=== PATIENT | female | born 2000 | race Caucasian/White ===

== ENCOUNTER 2018-03-09 23:20 | Emergency (ER) | payer OTHER ==
[~2018-03-09] VITALS: Ht 177.8 cm; Wt 72.6 kg
[2018-03-10 00:19] LABS: BASOPHILS % (AUTO) 0 % (0-10); EOSINOPHILS # (AUTO) 0.1 10^3/uL (0.0-0.3); EOSINOPHILS % (AUTO) 1 % (0-10); HEMATOCRIT 41 % (35-52); HEMOGLOBIN 14.2 G/DL (11.5-16.0); LYMPHOCYTES # (AUTO) 2.2 X 10^3 (1.0-4.0); LYMPHOCYTES % (AUTO) 23 % (12-44); MEAN CORPUSCULAR HEMOGLOBIN 32 PG (25-34); MEAN CORPUSCULAR HGB CONC 35 G/DL (32-36); MEAN CORPUSCULAR VOLUME 93 FL (80-99); MONOCYTES # (AUTO) 0.8 X 10^3 (0.0-1.0); MONOCYTES % (AUTO) 8 % (0-12); NEUTROPHILS # (AUTO) 6.7 X 10^3 (1.8-7.8); NEUTROPHILS % (AUTO) 68 % (42-75); PLATELET COUNT 259 10^3/uL (130-400); RED BLOOD COUNT 4.41 10^6/uL (4.35-5.85); RED CELL DISTRIBUTION WIDTH 12.4 % (10.0-14.5); WHITE BLOOD COUNT 9.9 10^3/uL (4.3-11.0)
[2018-03-10 00:42] LABS: ALANINE AMINOTRANSFERASE 13 U/L (0-55); ALBUMIN 4.7 GM/DL (3.2-4.5); ALKALINE PHOSPHATASE 62 U/L (40-136); BILIRUBIN,TOTAL 0.4 MG/DL (0.1-1.0); BUN/CREATININE RATIO 10; CALCIUM 9.8 MG/DL (8.5-10.1); CARBON DIOXIDE 22 MMOL/L (21-32); CHLORIDE 101 MMOL/L (98-107); CREATININE SERUM 0.87 MG/DL (0.60-1.30); GFR ESTIMATED > 60; GLUCOSE 100 MG/DL (70-105); POTASSIUM 3.5 MMOL/L (3.6-5.0); SODIUM 131 MMOL/L (135-145); TOTAL PROTEIN 7.7 GM/DL (6.4-8.2)
[2018-03-10 00:47] LABS: ERYTHROCYTE SEDIMENTATION RATE 5 MM/HR (0-20)
[2018-03-10] MEDS ORDERED: METH4TAB PO (00:58)
[2018-03-10] MEDS ORDERED: VALA10004 PO (00:58)
--- NOTE | 2018-03-10 00:58 | ED General ---
General Chief Complaint: Facial Problems Stated Complaint: NUMBNESS OF FACE,RT EYE WATERING Nursing Triage Note: Patient advises earlier this morning she noticed she was unable to rub her lips together to put on lipstick on. She advises her right eye has seemed to be drooping and watering and she advises around 1500 she noticed that her smile was uneven on the right side of her face and that the right side of her tongue was numb. Pt. denies any injury and is A&Ox 3. She denies pain at this time. Source of Information: Patient Exam Limitations: No Limitations History of Present Illness Date Seen by Provider: Mar 10, 2018 Time Seen by Provider: 23:42 Initial Comments PT ARRIVES VIA POV WITH MOM PT STATES WHEN SHE WAS PUTTING ON LIPSTICK THIS MORNING AROUND 0900, THE RIGHT SIDE OF HER LIPS/MOUTH FELT NUMB AND SHE COULD NOT PURSE HER LIPS ON THE RIGHT SIDE HER RIGHT EYE HAS BEEN WATERING ALL DAY AROUND 1500 TODAY, SHE NOTICE THAT HER SMILE WAS NOT RIGHT--RIGHT SIDE OF HER FACE WAS DROOPING C/O RIGHT SIDE OF HER TONGUE IS NUMB AND CANNOT TASTE ON THAT SIDE OF HER MOUTH NO CHANGES IN VISION NO PROBLEMS SWALLOWING HAS NOT BITTEN HER TONGUE NO PAIN TO FACE AND FACE / CHEEK ITSELF DOES NOT FEEL NUMB NO EYE PAIN PT STATES FOR THE LAST 2-3 DAYS SHE HAS NOTICED SOME MILD PAIN BELOW HER RIGHT EAR LOBE/BEHIND HER EAR LOBE NO KNOWN INJURY NO ACTUAL EAR PAIN NO FEVER OR RECENT ILLNESS/URI SYMPTOMS LMP 2 WEEKS AGO, NORMAL. NO CONTROL PCP: DR WALKER IN [facility] Allergies and Home Medications Allergies Coded Allergies: No Known Drug Allergies (Unverified , 03/09/18) Home Medications Methylprednisolone 4 Mg Tab.ds.pk, 4 MG PO UD Prescribed by: KEON DOMINGO on 03/10/1857 Valacyclovir HCl 1,000 Mg Tablet, 1,000 MG PO TID Prescribed by: KEON DOMINGO on 03/10/1857 Patient Home Medication List Home Medication List Reviewed: Yes Review of Systems Constitutional: no symptoms reported; No chills, No diaphoresis, No dizziness, No fever EENTM: see HPI Respiratory: no symptoms reported Cardiovascular: no symptoms reported Gastrointestinal: no symptoms reported Genitourinary: no symptoms reported : No Musculoskeletal: no symptoms reported Skin: no symptoms reported; No rash Psychiatric/Neurological: See HPI; Denies Headache Hematologic/Lymphatic: No Symptoms Reported Immunological/Allergic: no symptoms reported Past Qrjzqyo-Aevzbk-Zxtklo Hx Patient Social History Alcohol Use: Denies Use Recreational Drug Use: No Smoking Status: Never a Smoker Recent Foreign Travel: No Contact w/Someone Who Travel: No Recent Infectious Disease Expo: No Recent Hopitalizations: No Physical Abuse: No Sexual Abuse: No Seasonal Allergies Seasonal Allergies: No Past Medical History Surgeries: No Respiratory: No Cardiac: No Neurological: No : No Reproductive Disorders: No Genitourinary: No Gastrointestinal: No Musculoskeletal: No Endocrine: No HEENT: No Cancer: No Psychosocial: No Nursing Suicide Risk Score: 0 Integumentary: No Blood Disorders: No Physical Exam Vital Signs Vital Signs - First Documented 03/09/18 23:46 Temp 98.7 Pulse 84 Resp 16 B/P (MAP) 136/93 Pulse Ox 98 O2 Delivery Room Air Capillary Refill : General Appearance: No Apparent Distress, Other (SMILING, ABLE TO TALK WITHOUT DIFFICULTY) HEENT: PERRL/EOMI, TMs Normal, Pharynx Normal, Other (ABLE TO SQUEEZE RIGHT EYE SHUT.NO SIGNS OF INFECTION OR EXCESSIVE WATERING OF EYES AT THIS TIME) Neck: Full Range of Motion, Normal Inspection, Non Tender, Supple Respiratory: Normal Breath Sounds, No Accessory Muscle Use, No Respiratory Distress Cardiovascular: Regular Rate, Rhythm, No Edema, No JVD, No Murmur, Normal Peripheral Pulses Gastrointestinal: Non Tender, Soft Back: Normal Inspection Extremity: Normal Inspection Neurologic/Psychiatric: Alert, Oriented x3, Normal Mood/Affect, Facial Droop ( ON RIGHT), Other (SENSATION INTACT TO RIGHT SIDE OF FACE. FOREHEAD SPARED. ABLE TO SQUEEZE BOTH EYES SHUT. ) Skin: Normal Color, Warm/Dry; No Rash Progress/Results/Core Measures Suspected Sepsis SIRS Temperature:98.7 Pulse: Respiratory Rate: Laboratory Tests 03/10/18 00:11: White Blood Count 9.9 Blood Pressure / Mean: Laboratory Tests 03/10/18 00:11: Creatinine 0.87, Platelet Count 259, Total Bilirubin 0.4 Results/Orders Lab Results Laboratory Tests Test 03/10/18 00:11 Range/Units White Blood Count 9.9 4.3-11.0 10^3/uL Red Blood Count 4.41 4.35-5.85 10^6/uL Hemoglobin 14.2 11.5-16.0 G/DL Hematocrit 41 35-52 % Mean Corpuscular Volume 93 80-99 FL Mean Corpuscular Hemoglobin 32 25-34 PG Mean Corpuscular Hemoglobin Concent 35 32-36 G/DL Red Cell Distribution Width 12.4 10.0-14.5 % Platelet Count 259 130-400 10^3/uL Mean Platelet Volume 10.0 7.4-10.4 FL Neutrophils (%) (Auto) 68 42-75 % Lymphocytes (%) (Auto) 23 12-44 % Monocytes (%) (Auto) 8 0-12 % Eosinophils (%) (Auto) 1 0-10 % Basophils (%) (Auto) 0 0-10 % Neutrophils # (Auto) 6.7 1.8-7.8 X 10^3 Lymphocytes # (Auto) 2.2 1.0-4.0 X 10^3 Monocytes # (Auto) 0.8 0.0-1.0 X 10^3 Eosinophils # (Auto) 0.1 0.0-0.3 10^3/uL Basophils # (Auto) 0.0 0.0-0.1 10^3/uL Erythrocyte Sedimentation Rate 5 0-20 MM/HR Sodium Level 131 L 135-145 MMOL/L Potassium Level 3.5 L 3.6-5.0 MMOL/L Chloride Level 101 98-107 MMOL/L Carbon Dioxide Level 22 21-32 MMOL/L Anion Gap 8 5-14 MMOL/L Blood Urea Nitrogen 9 7-18 MG/DL Creatinine 0.87 0.60-1.30 MG/DL Estimat Glomerular Filtration Rate > 60 BUN/Creatinine Ratio 10 Glucose Level 100 70-105 MG/DL Calcium Level 9.8 8.5-10.1 MG/DL Total Bilirubin 0.4 0.1-1.0 MG/DL Aspartate Amino Transf (AST/SGOT) 16 5-34 U/L Alanine Aminotransferase (ALT/SGPT) 13 0-55 U/L Alkaline Phosphatase 62 40-136 U/L Total Protein 7.7 6.4-8.2 GM/DL Albumin 4.7 H 3.2-4.5 GM/DL Serum Test, Qualitative NEGATIVE NEGATIVE My Orders Orders - KEON DOMINGO DO Ct Head/Maxillofacial Wo (03/09/18 23:47) Saline Lock/Iv-Start (03/09/18 23:47) Cbc With Automated Diff (03/09/18 23:47) Comprehensive Metabolic Panel (03/09/18 23:47) Erythrocyte Sedimentation Rate (03/09/18 23:47) Hcg,Qualitative Serum (03/09/18 23:47) Methylprednisolone Sod Succ (Solu-Medrol (03/10/18 01:00) Acyclovir Capsule/Tablet (Zovirax Caps (03/10/18 01:00) Acyclovir Capsule/Tablet (Zovirax Caps (03/10/18 01:30) Medications Given in ED Current Medications Medications Dose Ordered Sig/Esau Route Start Time Stop Time Status Last Admin Dose Admin Methylprednisolone Sodium Succinate 125 mg ONCE ONCE IVP 03/10/18 01:00 03/10/18 01:01 DC 03/10/18 01:05 125 MG Vital Signs/I&O 03/09/18 03/10/18 23:46 01:11 Temp 98.7 Pulse 84 76 Resp 16 16 B/P (MAP) 136/93 Pulse Ox 98 98 O2 Delivery Room Air Room Air Capillary Refill : Progress Note : Progress Note NO DETERIORATION IN PT'S CONDITION DURING ER STAY Diagnostic Imaging Comments CT HEAD/MAXILLOFACIALS--NO ACUTE PROCESS, PER [facility] VIA FAX @ [phone] Reviewed: Reviewed by Me Departure Impression Primary Impression: Right-sided Em's palsy Disposition: 01 HOME, SELF-CARE Condition: Stable Departure-Patient Inst. Referrals: SAM WALKER DO (PCP/Family) Primary Care Physician Patient Instructions: Em's Palsy (DC) Add. Discharge Instructions: ARTIFICIAL TEARS TO EYE FREQUENTLY AVOID BITING YOUR TONGUE--AVOID FOODS THAT REQUIRE CHEWING FOLLOW UP WITH DR. WALKER IN 3-4 DAYS FOR FURTHER CARE RETURN TO ER IF WORSE All discharge instructions reviewed with patient and/or family. Voiced understanding. Scripts Methylprednisolone (Medrol) 4 Mg Tab.ds.pk 4 MG PO UD, #1 PKG Prov: KEON DOMINGO DO 03/10/18 Valacyclovir HCl (Valtrex) 1,000 Mg Tablet 1000 MG PO TID, #30 TAB Prov: KEON DOMINGO DO 03/10/18 KEON DOMINGO DO Mar 10, 2018 00:58
[2018-03-10] MEDS ORDERED: ACYCLOVIR 200 MG CAP (ZOVIRAX) PO SCH ×2 (01:00→01:30)
[2018-03-10] MEDS ORDERED: methylPREDNISolone 125 MG (Solu-MEDROL) VIAL IVP ONE (01:00)
--- NOTE | 2018-03-10 07:32 | Diagnostic Imaging Report ---
PROCEDURE: CT head and maxillofacial without contrast. TECHNIQUE: Multiple contiguous axial images were obtained through the head and facial bones without the use of intravenous contrast. INDICATION: Headache and tongue numbness. No prior exam available for comparison. FINDINGS: The ventricles and sulci are within normal limits. No hydrocephalus. No midline shift. No intracranial mass, hemorrhage or extra-axial fluid collection. Calvarium is intact. Sinuses and mastoid air cells are clear. The nasal bones are intact. The zygomatic arches are intact. Mandibular alignment is normal. There is no facial fracture appreciated. IMPRESSION: No acute intracranial abnormality. Normal maxillofacial CT. Dictated by: Dictated on workstation # [id number]
== END 2018-03-10 01:20 | disposition home or self-care (01) ==
LOC: EDUNIT# 23:20 → ER 23:25
DX: G51.0 Bell's palsy (principal)
CPT/HCPCS: 36415; 70450; 70486; 80053; 84703; 85025; 85652; 96374